=== PATIENT | male | born 1975 | race Two or more races ===

== ENCOUNTER 2017-08-03 18:52 | Emergency (ER) | payer OTHER ==
[~2017-08-03] VITALS: Ht 160 cm; Wt 63.5 kg
[2017-08-03 18:56] VITALS: BP 132/85
== END 2017-08-03 20:35 | disposition home or self-care (01) ==
LOC: ER 19:00
DX: S01.01XA Laceration without foreign body of scalp, initial encounter (principal); Y08.89XA Assault by other specified means, initial encounter; Y93.89 Activity, other specified; Y99.8 Other external cause status; Y92.89 Other specified places as the place of occurrence of the external cause
CPT/HCPCS: 12002; 70450; 70486